=== PATIENT | female | born 1940 | race Caucasian/White ===

== ENCOUNTER 2024-05-25 18:18 | Inpatient (IN) | payer OTHER ==
[2024-05-25] MEDS ORDERED: AZITHROMYCIN 500 MG VIAL IVPB ONE (20:02)
[2024-05-25] MEDS ORDERED: cefTRIAXone SODIUM 1 GM VIAL ONE (20:03)
[2024-05-25] MEDS: CEFTRIAXONE 500 MG in DEXTROSE 5%-WATER - 50 ML IVPB ONE (20:10)
[2024-05-25] MEDS ORDERED: METOPROLOL TARTRATE 5 MG/5 ML VIAL ONE (20:11)
[2024-05-25] MEDS: METOPROLOL TARTRATE 5 MG/5 ML VIAL IVPUSH ONE (20:15)
[2024-05-25 20:31] LABS: HEMATOCRIT 41.3 % (32.4-45.2); HEMOGLOBIN 12.5 G/dL (10.7-15.3); MCH 25.6 pg (25.7-33.7); MEAN CELL VOLUME 84.8 fl (80-96); MEAN PLT VOLUME 8.6 fl (7.5-11.1); PLATELET COUNT 403.6 10^3/uL (134-434); RBC 4.87 10^6/uL (3.60-5.2); RDW 14.8 % (11.6-15.6); WHITE BLOOD COUNT 12.5 10^3/uL (4.0-10.8)
[2024-05-25 20:48] LABS: ALBUMIN 3.6 g/dl (3.4-5.0); BILIRUBIN,TOTAL 0.5 mg/dl (0.2-1); CALCIUM 9.5 mg/dl (8.5-10.1); CREATININE 0.6 mg/dl (0.6-1.3); TOT PROT 7.4 g/dl (6.4-8.2)
[2024-05-25 20:52] LABS: INR 1.23 (0.83-1.09); PROTHROMBIN TIME (PATIENT) 13.9 SEC (9.7-13.0)
[2024-05-25 20:59] LABS: MCHC 30.2 g/dl (32.0-36.0)
[2024-05-25] MEDS ORDERED: FOLIC ACID 5 MG/1 ML ONE (21:04)
[2024-05-25] MEDS ORDERED: THIAMINE HCL 200 MG/2 ML VIAL ONE (21:04)
[2024-05-25 21:05] LABS: VENOUS BASE EXCESS 5.1 mmol/L (-2-2); VENOUS O2 SATURATION 78.8 % (70-80); VENOUS PCO2 66.3 mmHg (38-52); VENOUS PH 7.321 (7.310-7.410)
[2024-05-25] MEDS ORDERED: MULTIVIT INJ. ADULT COMBO WITH VIT K 1 COMBO 10 ML VIAL IV ONE (21:06)
[2024-05-25 21:24] LABS: PLATELET ESTIMATE ADEQUATE
[2024-05-25 21:32] LABS: N-TERMINAL BNP 4908.9 pg/ml (5-450)
[2024-05-25 21:38] LABS: MAGNESIUM 1.8 mg/dL (1.8-2.4)
[2024-05-25] MEDS: AZITHROMYCIN IVPB 500 MG in DEXTROSE 5%-WATER - 250 ML IVPB ONE (22:59)
[2024-05-25 23:04] LABS: EPITHELIAL CELLS 21-50 /hpf
[2024-05-25] MEDS ORDERED: FUROSEMIDE 40 MG/4 ML INJECTABLE VIAL ONE (23:54)
[2024-05-25] MEDS ORDERED: DEXAMETHASONE SOD PHOSPHATE 10 MG/1 ML VIAL ONE (23:54)
[2024-05-25] MEDS: FUROSEMIDE 40 MG/4 ML INJECTABLE VIAL IVPUSH ONE (23:55)
[2024-05-25] MEDS: FOLIC ACID INJECTION - 1 MG, THIAMINE HCL 100 MG, MULTIVIT INJECTION ADULT 10 ML in SOD... IVPB ONE (23:56)
[2024-05-25] MEDS: DEXAMETHASONE SOD PHOSPHATE 10 MG/1 ML VIAL IVPUSH ONE (23:56)
[2024-05-26 01:41] LABS: ARTERIAL BLD GAS O2 SATURATION 98.2 % (95-98); ARTERIAL BLOOD GAS BASE EXCESS 6.6 mmol/L (-2-2); ARTERIAL BLOOD GAS PO2 128.4 mmHg (80-100); ARTERIAL BLOOD GAS pH 7.325 (7.350-7.450)
[2024-05-26] MEDS ORDERED: ALBUTEROL SO4 0.083% IH SOL 2.5 MG/3 ML VIAL.NEB. NEB PRN (02:14)
[2024-05-26] MEDS: FUROSEMIDE INJECTION 100 MG in SODIUM CHLORIDE 90 ML IVPB SCH (02:34)
[2024-05-26] MEDS: SIMETHICONE 80 MG TAB.CHEW (FP) PO STA (03:33)
[2024-05-26] MEDS: methylPREDNISolone NA SUCC 40 MG/1 ML VIAL IVPUSH SCH (03:44)
[2024-05-26 07:02] LABS: HEMATOCRIT 35.4 % (32.4-45.2); HEMOGLOBIN 11.4 GM/dL (10.7-15.3); MCH 26.9 pg (25.7-33.7); MCHC 32.3 g/dl (32.0-36.0); MEAN CELL VOLUME 83.4 fl (80-96); MEAN PLT VOLUME 7.6 fl (7.5-11.1); PLATELET COUNT 384 10^3/uL (134-434); RBC 4.25 M/mm3 (3.60-5.2); RDW 13.7 % (11.6-15.6); WHITE BLOOD COUNT 10.4 K/mm3 (4.0-10.0)
[2024-05-26 07:14] LABS: POTASSIUM 3.9 mmol/L (3.5-5.1)
[2024-05-26 07:18] LABS: BLOOD UREA NITROGEN 24.8 mg/dL (7-18); CALCIUM 8.7 mg/dL (8.5-10.1); MAGNESIUM 1.7 mg/dL (1.8-2.4)
[2024-05-26 07:22] LABS: CREATININE 0.7 mg/dL (0.55-1.3); PHOSPHOROUS 4.5 mg/dL (2.5-4.9)
[2024-05-26 07:26] LABS: N-TERMINAL BNP 9038.8 pg/ml (5-450)
[2024-05-26] MEDS: ENOXAPARIN NA (PORCINE) 40 MG/0.4 ML DISP.SYRIN SQ SCH (09:43)
[2024-05-26] MEDS: AZITHROMYCIN IVPB 500 MG/250 ML BAG IVPB SCH (09:44)
[2024-05-26] MEDS: PANTOPRAZOLE SODIUM 40 MG VIAL IVPUSH SCH (09:45)
[2024-05-26] MEDS: MAGNESIUM SULF 50% (8.12 MEQ/2 ML-1 GM VIAL) IVPB ONE (09:45)
[2024-05-26] MEDS: CEFTRIAXONE 1 GM in DEXTROSE 5%-WATER - 50 ML IVPB SCH (09:46)
[2024-05-26] MEDS: DOCUSATE SODIUM 100 MG CAPSULE (FP) PO SCH (21:43)
[2024-05-27 07:54] LABS: BASO % 0.2 % (0-2.0); HEMATOCRIT 36.1 % (32.4-45.2); HEMOGLOBIN 11.3 GM/dL (10.7-15.3); LYMPH % 7.3 % (8-40); MCH 26.3 pg (25.7-33.7); MCHC 31.3 g/dl (32.0-36.0); MEAN CELL VOLUME 84.1 fl (80-96); MEAN PLT VOLUME 8.2 fl (7.5-11.1); MONO % 3.1 % (3.8-10.2); NEUT % 89.4 % (42.8-82.8); PLATELET COUNT 422 10^3/uL (134-434); RBC 4.29 M/mm3 (3.60-5.2); RDW 13.8 % (11.6-15.6); WHITE BLOOD COUNT 12.2 K/mm3 (4.0-10.0)
[2024-05-27 08:09] LABS: POTASSIUM 4.2 mmol/L (3.5-5.1)
[2024-05-27 08:11] LABS: CALCIUM 8.9 mg/dL (8.5-10.1)
[2024-05-27 08:12] LABS: ALBUMIN 2.4 g/dl (3.4-5.0); BLOOD UREA NITROGEN 38.4 mg/dL (7-18); MAGNESIUM 2.7 mg/dL (1.8-2.4)
[2024-05-27 08:15] LABS: CREATININE 0.6 mg/dL (0.55-1.3); PHOSPHOROUS 3.8 mg/dL (2.5-4.9)
[2024-05-27 08:16] LABS: BILIRUBIN,TOTAL 0.2 mg/dL (0.2-1); TOT PROT 6.5 g/dl (6.4-8.2)
[2024-05-27] MEDS ORDERED: methylPREDNISolone NA SUCC 40 MG/1 ML VIAL IVPUSH SCH (14:15)
[2024-05-27] MEDS: ACETAMINOPHEN 325 MG TABLET (FP) PO PRN (18:24)
[2024-05-27] MEDS ORDERED: ALBUTEROL SO4 0.083% IH SOL 2.5 MG/3 ML VIAL.NEB. NEB PRN (18:32)
[2024-05-27] MEDS: methylPREDNISolone NA SUCC 40 MG/1 ML VIAL IVPUSH SCH (19:43)
[2024-05-27] MEDS: DOCUSATE SODIUM 100 MG CAPSULE (FP) PO SCH (21:20)
[2024-05-28] MEDS: methylPREDNISolone NA SUCC 40 MG/1 ML VIAL IVPUSH SCH (04:42)
[2024-05-28] MEDS: CEFTRIAXONE 1 GM in DEXTROSE 5%-WATER - 50 ML IVPB SCH (09:13)
[2024-05-28] MEDS: POLYETHYLENE GLYCOL (HEALTHYLAX) 3350 17 GM PACKET PO SCH (09:13)
[2024-05-28] MEDS: ENOXAPARIN NA (PORCINE) 40 MG/0.4 ML DISP.SYRIN SQ SCH (09:14)
[2024-05-28] MEDS: PANTOPRAZOLE SODIUM 40 MG VIAL IVPUSH SCH (09:14)
[2024-05-28] MEDS: AZITHROMYCIN IVPB 500 MG/250 ML BAG IVPB SCH (09:22)
[2024-05-28] MEDS: ALBUTEROL SO4 2.5/IPRATROPIUM 0.5 INH SOL 3 ML VIAL.NEB. NEB SCH (15:25)
[2024-05-29 07:04] LABS: BASO % 0.2 % (0-2.0); HEMATOCRIT 37.3 % (32.4-45.2); HEMOGLOBIN 11.9 GM/dL (10.7-15.3); LYMPH % 9.2 % (8-40); MCH 26.6 pg (25.7-33.7); MCHC 31.8 g/dl (32.0-36.0); MEAN CELL VOLUME 83.8 fl (80-96); MEAN PLT VOLUME 7.3 fl (7.5-11.1); MONO % 4.7 % (3.8-10.2); NEUT % 85.9 % (42.8-82.8); PLATELET COUNT 490 10^3/uL (134-434); RBC 4.45 M/mm3 (3.60-5.2); RDW 13.7 % (11.6-15.6); WHITE BLOOD COUNT 8.3 K/mm3 (4.0-10.0)
[2024-05-29 07:15] LABS: POTASSIUM 4.2 mmol/L (3.5-5.1)
[2024-05-29 07:18] LABS: CALCIUM 9.2 mg/dL (8.5-10.1)
[2024-05-29 07:19] LABS: ALBUMIN 2.4 g/dl (3.4-5.0); BLOOD UREA NITROGEN 25.2 mg/dL (7-18)
[2024-05-29 07:22] LABS: CREATININE 0.5 mg/dL (0.55-1.3)
[2024-05-29 07:23] LABS: BILIRUBIN,TOTAL 0.7 mg/dL (0.2-1); TOT PROT 6.3 g/dl (6.4-8.2)
[2024-05-29] MEDS: MAGNESIUM HYDROX 2400MG/30ML ORAL SUSPENSION 30 ML CUP PO PRN (10:07)
[2024-05-29 21:09] VITALS: BMI 19.0
[2024-05-30 07:53] LABS: BASO % 0.1 % (0-2.0); EOS % 0.1 % (0-4.5); HEMATOCRIT 41.2 % (32.4-45.2); HEMOGLOBIN 12.8 GM/dL (10.7-15.3); LYMPH % 11.2 % (8-40); MCH 26.3 pg (25.7-33.7); MCHC 31.1 g/dl (32.0-36.0); MEAN CELL VOLUME 84.5 fl (80-96); MEAN PLT VOLUME 7.4 fl (7.5-11.1); MONO % 5.8 % (3.8-10.2); NEUT % 82.8 % (42.8-82.8); PLATELET COUNT 523 10^3/uL (134-434); RBC 4.88 M/mm3 (3.60-5.2); RDW 14.1 % (11.6-15.6); WHITE BLOOD COUNT 8.4 K/mm3 (4.0-10.0)
[2024-05-30 08:10] LABS: POTASSIUM 5.1 mmol/L (3.5-5.1)
[2024-05-30 08:12] LABS: ALBUMIN 2.6 g/dl (3.4-5.0); BLOOD UREA NITROGEN 20.7 mg/dL (7-18); CALCIUM 9.2 mg/dL (8.5-10.1); MAGNESIUM 2.6 mg/dL (1.8-2.4)
[2024-05-30 08:15] LABS: CREATININE 0.5 mg/dL (0.55-1.3)
[2024-05-30 08:16] LABS: PHOSPHOROUS 2.4 mg/dL (2.5-4.9)
[2024-05-30 08:17] LABS: BILIRUBIN,TOTAL 0.3 mg/dL (0.2-1); TOT PROT 6.7 g/dl (6.4-8.2)
[2024-05-30] MEDS ORDERED: NAPH,MB-DB/K PH,MBDB POWDER PACKET PO ONE (17:00)
[2024-05-30] MEDS: SIMETHICONE 80 MG TAB.CHEW (FP) PO ONE (19:10)
[2024-05-30] MEDS: NAPH,MB-DB/K PH,MBDB POWDER PACKET PO ONE (20:53)
[2024-05-31] MEDS: MAG HYDROX/AL HYDROX/SIMETH 30 ML UNIT-DOSE CUP PO ONE (04:41)
[2024-05-31 07:51] LABS: BASO % 0.1 % (0-2.0); EOS % 1.1 % (0-4.5); HEMATOCRIT 38.2 % (32.4-45.2); HEMOGLOBIN 11.8 GM/dL (10.7-15.3); LYMPH % 9.7 % (8-40); MEAN CELL VOLUME 83.8 fl (80-96); MEAN PLT VOLUME 7.4 fl (7.5-11.1); MONO % 3.4 % (3.8-10.2); NEUT % 85.7 % (42.8-82.8); PLATELET COUNT 460 10^3/uL (134-434); RBC 4.55 M/mm3 (3.60-5.2); RDW 14.1 % (11.6-15.6); WHITE BLOOD COUNT 6.7 K/mm3 (4.0-10.0)
[2024-05-31 08:13] LABS: POTASSIUM 5.2 mmol/L (3.5-5.1)
[2024-05-31 08:16] LABS: ALBUMIN 2.4 g/dl (3.4-5.0); BLOOD UREA NITROGEN 19.2 mg/dL (7-18); CALCIUM 8.9 mg/dL (8.5-10.1)
[2024-05-31 08:19] LABS: CREATININE 0.4 mg/dL (0.55-1.3); PHOSPHOROUS 2.9 mg/dL (2.5-4.9)
[2024-05-31 08:21] LABS: BILIRUBIN,TOTAL 0.4 mg/dL (0.2-1); TOT PROT 5.8 g/dl (6.4-8.2)
[2024-05-31] MEDS: methylPREDNISolone NA SUCC 40 MG/1 ML VIAL IVPUSH SCH (21:40)
[2024-06-01 08:32] LABS: POTASSIUM 5.1 mmol/L (3.5-5.1)
[2024-06-01 08:37] LABS: CALCIUM 8.7 mg/dL (8.5-10.1)
[2024-06-01 08:38] LABS: ALBUMIN 2.5 g/dl (3.4-5.0); BLOOD UREA NITROGEN 19.9 mg/dL (7-18)
[2024-06-01 08:41] LABS: CREATININE 0.4 mg/dL (0.55-1.3)
[2024-06-01 08:42] LABS: BILIRUBIN,TOTAL 0.3 mg/dL (0.2-1)
[2024-06-01] MEDS ORDERED: MAG HYDROX/AL HYDROX/SIMETH -MYLANTA- ORAL SUSPENSION PO PRN (18:27)
[2024-06-01] MEDS: MAG HYDROX/AL HYDROX/SIMETH 30 ML UNIT-DOSE CUP PO PRN (18:53)
[2024-06-02 08:01] LABS: POTASSIUM 5.3 mmol/L (3.5-5.1)
[2024-06-02 08:08] LABS: ALBUMIN 2.7 g/dl (3.4-5.0)
[2024-06-02 08:10] LABS: CREATININE 0.5 mg/dL (0.55-1.3)
[2024-06-02 08:13] LABS: BILIRUBIN,TOTAL 0.3 mg/dL (0.2-1); TOT PROT 6.5 g/dl (6.4-8.2)
[2024-06-02] MEDS: predniSONE 20 MG TABLET (UD) PO SCH (09:59)
[2024-06-02 12:06] VITALS: RESP 18; TEMP 97.7
[2024-06-02 15:34] VITALS: BP 119/62; PULSE 80
== END 2024-06-02 17:02 | disposition home or self-care (01) | DRG 871 ==
LOC: FER 18:18 → FM/S 22:51 → JICU 05-26 00:58 → J4W 05-27 16:47
PROVIDERS: ADMIT Internal Medicine; ATTEND Internal Medicine
DX: A41.9 Sepsis, unspecified organism (principal); I21.A1 Myocardial infarction type 2; J18.9 Pneumonia, unspecified organism; J96.01 Acute respiratory failure with hypoxia; J84.10 Pulmonary fibrosis, unspecified; E86.0 Dehydration; Z99.81 Dependence on supplemental oxygen; G51.0 Bell's palsy; I27.20 Pulmonary hypertension, unspecified; I11.0 Hypertensive heart disease with heart failure; I50.9 Heart failure, unspecified
CPT/HCPCS: 0241U-QW; 36415; 36600; 71045-TC-FY; 71275-TC; 76705-TC; 80048; 80053; 81003; 81015; 82803; 82962; 83605; 83735; 83880; 84100; 84443; 84484; 85025; 85027; 85379; 85610; 87040; 87070; 87086; 87205; 93005; 93306-TC; 94640; 94761; 97116-GP; 97162-GP; 99285-25; J1100; Q9967

== ENCOUNTER 2024-06-24 03:13 | Emergency (ER) | payer OTHER ==
[2024-06-24 03:22] VITALS: BP 121/66; PULSE 86; RESP 19; TEMP 97.9; BMI 23.8
[2024-06-24 04:15] LABS: HEMATOCRIT 36.3 % (32.4-45.2); HEMOGLOBIN 11.6 GM/dL (10.7-15.3); MCH 26.8 pg (25.7-33.7); MEAN CELL VOLUME 83.7 fl (80-96); MEAN PLT VOLUME 7.9 fl (7.5-11.1); PLATELET COUNT 273 10^3/uL (134-434); RBC 4.34 M/mm3 (3.60-5.2); RDW 15.4 % (11.6-15.6); WHITE BLOOD COUNT 5.3 K/mm3 (4.0-10.0)
[2024-06-24 05:23] LABS: MAGNESIUM 1.6 mg/dL (1.8-2.4); POTASSIUM 4.4 mmol/L (3.5-5.1)
[2024-06-24 05:24] LABS: CALCIUM 9.5 mg/dL (8.5-10.1)
[2024-06-24 05:26] LABS: ALBUMIN 2.9 g/dl (3.4-5.0)
[2024-06-24 05:29] LABS: BILIRUBIN,TOTAL 0.3 mg/dL (0.2-1); CREATININE 0.5 mg/dL (0.55-1.3)
[2024-06-24 05:31] LABS: N-TERMINAL BNP 58.7 pg/ml (5-450); TOT PROT 6.5 g/dl (6.4-8.2)
[2024-06-24 06:19] LABS: ANISOCYTOSIS 3+; MACROCYTOSIS 0; OVALOCYTE 1+; ROULEAU 2+
[2024-06-24 08:23] LABS: EPITHELIAL CELLS 0-5 /hpf
== END 2024-06-24 06:43 | disposition home or self-care (01) ==
LOC: FER 03:13
DX: J84.10 Pulmonary fibrosis, unspecified (principal); R05.9 Cough, unspecified; R06.02 Shortness of breath; R07.9 Chest pain, unspecified; Z20.822 Contact with and (suspected) exposure to COVID-19
CPT/HCPCS: 0241U-QW; 36415; 71045-TC-FY; 80053; 81003; 81015; 83735; 83880; 84484; 85025; 87086; 93005; 99285-25

== ENCOUNTER 2024-08-06 21:23 | Inpatient (IN) | payer OTHER ==
[2024-08-06] MEDS: SODIUM CHLORIDE 0.9% 500 ML INFUS.BAG IV ONE (22:00)
[2024-08-06 22:07] LABS: HEMATOCRIT 34.5 % (32.4-45.2); HEMOGLOBIN 10.7 G/dL (10.7-15.3); MCH 27.3 pg (25.7-33.7); MCHC 31.1 g/dl (32.0-36.0); MEAN CELL VOLUME 87.7 fl (80-96); MEAN PLT VOLUME 7.8 fl (7.5-11.1); PLATELET COUNT 329.1 10^3/uL (134-434); RBC 3.93 10^6/uL (3.60-5.2); RDW 15.3 % (11.6-15.6); WHITE BLOOD COUNT 7.2 10^3/uL (4.0-10.8)
[2024-08-06 22:27] LABS: ALBUMIN 3.5 g/dl (3.4-5.0); BILIRUBIN,TOTAL 0.5 mg/dl (0.2-1); CALCIUM 9.5 mg/dl (8.5-10.1); CREATININE 0.5 mg/dl (0.6-1.3); MAGNESIUM 1.5 mg/dL (1.8-2.4); PHOSPHOROUS 3.9 (2.5-4.9); POTASSIUM 3.8 mmol/L (3.5-5.1); TOT PROT 6.3 g/dl (6.4-8.2)
[2024-08-06] MEDS ORDERED: MAGNESIUM 1GM/D5W - 1 GM/100 ML IVPB IVPB ONE (23:19)
[2024-08-06] MEDS ORDERED: methylPREDNISolone NA SUCC 125 MG/2 ML VIAL ONE (23:19)
[2024-08-06] MEDS: methylPREDNISolone NA SUCC 125 MG/2 ML VIAL IVPUSH ONE (23:27)
[2024-08-06 23:39] LABS: VENOUS BASE EXCESS 11.3 mmol/L (-2-2); VENOUS O2 SATURATION 98.2 % (70-80); VENOUS PH 7.264 (7.310-7.410)
[2024-08-06] MEDS: MAGNESIUM 1GM/D5W - 1 GM/100 ML IVPB IVPB ONE (23:40)
[2024-08-06 23:42] LABS: VENOUS PCO2 93.9 mmHg (38-52)
[2024-08-06 23:46] LABS: N-TERMINAL BNP 426.1 pg/ml (5-450)
[2024-08-06 23:53] LABS: EPITHELIAL CELLS 0-5 /hpf
[2024-08-07 00:33] LABS: LACTIC ACID 2.8 mmol/L (0.4-2.0)
[2024-08-07] MEDS ORDERED: cefTRIAXone SODIUM 1 GM VIAL ONE (00:38)
[2024-08-07] MEDS: CEFTRIAXONE 1,000 MG in DEXTROSE 5%-WATER - 50 ML IVPB ONE (00:44)
[2024-08-07] MEDS ORDERED: MAGNESIUM 1GM/D5W - 1 GM/100 ML IVPB IVPB ONE (00:53)
[2024-08-07] MEDS: MAGNESIUM 1GM/D5W - 1 GM/100 ML IVPB IVPB ONE (01:03)
[2024-08-07 02:41] LABS: VENOUS BASE EXCESS 13.1 mmol/L (-2-2); VENOUS O2 SATURATION 75.5 % (70-80); VENOUS PH 7.316 (7.310-7.410)
[2024-08-07] MEDS: LEVALBUTEROL HCL 0.31 MG/3 ML VIAL.NEB IH PRN ×2 (02:48→17:32)
[2024-08-07] MEDS: AZITHROMYCIN IVPB 500 MG/250 ML BAG IVPB SCH (04:00)
[2024-08-07] MEDS ORDERED: LEVALBUTEROL HCL 0.31 MG/3 ML VIAL.NEB IH PRN (04:16)
[2024-08-07] MEDS: D5-1/2NS+20 MEQ KCL - 20 MEQ/1,000 ML INFUS.BAG IV SCH (04:38)
[2024-08-07 05:07] VITALS: BMI 25.7
[2024-08-07] MEDS: LEVALBUTEROL HCL 0.31 MG/3 ML VIAL.NEB IH ONE (05:11)
[2024-08-07 08:32] LABS: ACTIVATED PTT 35.6 SECONDS (25.2-36.5); INR 0.97 (0.83-1.09); PROTHROMBIN TIME (PATIENT) 11.1 SEC (9.7-13.0)
[2024-08-07 08:53] LABS: CALCIUM 9.2 mg/dl (8.5-10.1); CREATININE 0.4 mg/dl (0.6-1.3); MAGNESIUM 2.1 mg/dL (1.8-2.4); POTASSIUM 4.2 mmol/L (3.5-5.1)
[2024-08-07 09:34] LABS: HEMATOCRIT 32.6 % (32.4-45.2); HEMOGLOBIN 10.1 GM/dL (10.7-15.3); MCH 26.2 pg (25.7-33.7); MEAN CELL VOLUME 84.6 fl (80-96); MEAN PLT VOLUME 7.5 fl (7.5-11.1); PLATELET COUNT 368 10^3/uL (134-434); RBC 3.86 M/mm3 (3.60-5.2); RDW 16.2 % (11.6-15.6); WHITE BLOOD COUNT 6.3 K/mm3 (4.0-10.0)
[2024-08-07] MEDS: methylPREDNISolone NA SUCC 40 MG/1 ML VIAL IVPUSH SCH (09:41)
[2024-08-07] MEDS: HEPARIN NA (PORCINE) 5,000 UNITS/ML 1ML VIAL SQ SCH (09:41)
[2024-08-07 10:22] LABS: ANISOCYTOSIS 0; MACROCYTOSIS 0
[2024-08-07 10:23] LABS: PLATELET ESTIMATE ADEQUATE
[2024-08-07] MEDS: ALBUTEROL SO4 2.5/IPRATROPIUM 0.5 INH SOL 3 ML VIAL.NEB. NEB PRN (12:58)
[2024-08-07] MEDS: POLYETHYLENE GLYCOL (HEALTHYLAX) 3350 17 GM PACKET PO SCH (12:58)
[2024-08-07] MEDS: CEFTRIAXONE 1 G/50 ML PREMIX 50 ML IVPB SCH (21:28)
[2024-08-07] MEDS: ACETAMINOPHEN 1000 MG/100 ML BAG IVPB ONE (21:52)
[2024-08-08] MEDS: MELATONIN 5 MG TABLETS PO PRN (00:45)
[2024-08-08] MEDS ORDERED: LEVALBUTEROL HCL 0.31 MG/3 ML VIAL.NEB IH SCH (01:00)
[2024-08-08] MEDS: morphine SULFATE 4 MG/ML VIAL IVPUSH ONE (03:59)
[2024-08-08] MEDS: LEVALBUTEROL HCL 0.63 MG/3 ML VIAL.NEB. IH SCH (09:15)
[2024-08-08] MEDS: MORPHINE 100mg/NS INFUSION 100 MG/100 ML MG IVPB SCH ×2 (10:01→13:02)
[2024-08-08] MEDS: AZITHROMYCIN IVPB 500 MG/250 ML BAG IVPB SCH (23:23)
[2024-08-09] MEDS: LEVALBUTEROL HCL 0.31 MG/3 ML VIAL.NEB IH SCH (03:18)
[2024-08-09 14:12] VITALS: TEMP 98.6
[2024-08-09 18:33] VITALS: BP 70/30; PULSE 83; RESP 22
== END 2024-08-09 23:45 | disposition expired | DRG 196 ==
LOC: FER 21:23 → FM/S 08-07 01:17
PROVIDERS: ADMIT Student in an Organized Health Care Education/Training Program; ATTEND Student in an Organized Health Care Education/Training Program
DX: J84.9 Interstitial pulmonary disease, unspecified (principal); J96.21 Acute and chronic respiratory failure with hypoxia; E87.20 Acidosis, unspecified; I10 Essential (primary) hypertension; Z86.16 Personal history of COVID-19; R45.1 Restlessness and agitation; Z99.81 Dependence on supplemental oxygen; J84.10 Pulmonary fibrosis, unspecified
CPT/HCPCS: 0241U-QW; 36415; 71045-TC-FY; 80048; 80053; 81003; 81015; 82550; 82803; 83605; 83735; 83880; 84100; 84484; 85025; 85027; 85610; 85730; 87040; 87086; 93005; 94640; 99285-25; J0131; J1644